=== PATIENT | female | born 1955 | race Caucasian/White ===

== ENCOUNTER 2017-03-24 10:16 | Emergency (ER) | payer OTHER ==
--- NOTE | ~2017-03-24 | EKG ---
PATIENT: CANELO HOLTY UNIT #: [id number] Ventricular Rate: 72 BPM Atrial Rate: 72 BPM P-R Interval: 140 ms QRS Duration: 78 ms Q-T Interval: 400 ms QTC Calculation(Bezet): 438 ms P Stanton: 21 degrees Calculated R Stanton: 46 degrees Calculated T Stanton: 11 degrees Diagnosis Line: Sinus rhythm with marked sinus arrhythmia Diagnosis Line: Otherwise normal ECG Diagnosis Line: No previous ECGs available Diagnosis Line: Confirmed by ROSELINE CASTRO MD ([id number]) on 03/25/2017 Diagnosis Line: 8:01:19 PM INTERPRETING MD: GLORIA CASTILLO
--- NOTE | ~2017-03-24 | CR72 ---
[facility] A Service of [facility] & [facility] RADIOLOGY TEXT RESULTS PATIENT: DONNA HOLT LOCATION: [facility] : 51 UNIT #: [id number] AGE: [address]: Santiago Mansfield MD SEX: F ORDER DR: [id number] [facility] [address] [place], [place] [address] [id number] MR#: [id number] Acc #: [id number] NAME: DONNA HOLT. : 1955 SEX: F STUDY DATE/TIME: 03/24/2017 10:48 UNIT: [facility] ROOM: STUDY DESCRIPTION: CR Chest Single View Portable Attending Physician: Santiago Mansfield M.D. Referring Physician: Jd Oliver II., M.D. Ordering Physician: Santiago Mansfield M.D. Primary Care Physician: Rambo Alves M.D. MEDICAL IMAGING REPORT This report is preliminary unless electronic signature is present EXAM Portable chest x-ray 03/24/2017. HISTORY Short of air. Hypotensive, short of air today. TECHNIQUE AP radiograph of the chest is presented. COMPARISON 07/25/2009. FINDINGS The bony structures are unremarkable. The heart is upper limits of normal in size. Stable appearance. The lungs are well inflated. There is no evidence of acute infectious or inflammatory disease. No pleural effusion or pneumothorax. No suspicious nodule. Dictated by... Jian Zamora M.D. THIS IS AN ELECTRONICALLY VERIFIED REPORT Jian Zamora M.D. at 03/25/2017 11:32 PM Redd TD: 03/24/2017 14:13 JOB #: [id number] MEDICAL IMAGING REPORT Page 1 of 1 COPY
[~2017-03-24 10:16] MED LIST: ASCORBIC ACID500 MG; BACLOFEN10 MG; BACLOFEN10 MG PO; BETASERON IM; DITROPAN; DITROPAN PO; FIBER LAXATIVE; FOSAMAX PO; LAMISIL; LEXAPRO PO; MULTI-VITAMIN1 TAB; NEURONTIN; TEMAZEPAM PO; VIT B-12; VIT B-6; ZANAFLEX; ZANAFLEX PO; [UNRECOGNIZED DRUG - OTHER]
[2017-03-24] MEDS ORDERED: NEURONTIN600 MG PO (10:56)
[2017-03-24] MEDS ORDERED: FLEXERIL PO (10:56)
[2017-03-24] MEDS ORDERED: TIZANIDINE HCL4 M1 PO (10:58)
[2017-03-24] MEDS ORDERED: CELEXA20 MG PO (10:59)
[2017-03-24] MEDS ORDERED: WELCHOL625 M1 PO (10:59)
[2017-03-24] MEDS ORDERED: CALCIUM 600 +1 EAC5 PO (11:02)
[2017-03-24] MEDS ORDERED: REBIF44 MC1 IM (11:03)
[2017-03-24] MEDS ORDERED: LUMIGAN2.5 ML OU (11:05)
[2017-03-24] MEDS ORDERED: ALPHAGAN P5 ML OU (11:05)
[2017-03-24] MEDS ORDERED: ADVIL200 M3 PO (11:08)
[2017-03-24 11:16] LABS: BASOPHIL% 0.5 % (0-2.5); EOSINOPHIL# 0.1 X10e3 (0-0.7); EOSINOPHIL% 2.8 % (0.0-7.0); HEMATOCRIT 30.2 % (35.0-45.0); HEMOGLOBIN 9.8 gm/dL (12.0-16.0); LYMPHOCYTE# 1.6 X10e3 (1.0-3.5); LYMPHOCYTE% 36.5 % (17.0-45.0); MEAN CELL VOLUME 90.5 FL (83-96); MEAN CORPUSCULAR HEMOGLOBIN 29.4 PG (28-34); MEAN CORPUSCULAR HGB CONC 32.5 g/dL (30-36); MEAN PLATELET VOLUME 9.9 FL (6.5-11.5); MONOCYTE# 0.7 X10e3 (0-1.0); MONOCYTE% 15.3 % (3.0-12.0); NEUTROPHIL% 44.9 % (40-75); PLATELET COUNT 134 X10e3 (140-420); RED BLOOD COUNT 3.34 X10e (3.90-5.30); RED CELL DISTRIBUTION WIDTH 13.7 % (11.0-15.5); WHITE BLOOD COUNT 4.4 X10e3 (4.0-10.5)
[2017-03-24 11:21] LABS: DIFF IND NO
[2017-03-24 11:22] LABS: POC - CKMB <1.0 ng/mL (0.0-7.9); POC - TROPONIN <0.05 ng/mL (<=0.05)
[2017-03-24 11:52] LABS: ALBUMIN SERUM 3.9 g/dL (3.5-5.0); ALKALINE PHOSPHATASE 64 U/L (32-92); ALT (SGPT) 17 U/L (10-40); AST (SGOT) 23 U/L (10-42); BILIRUBIN,TOTAL 0.4 mg/dL (0.2-2.0); BLOOD UREA NITROGEN 19 mg/dL (9-23); BUN/CREATININE RATIO 17.27; CALCIUM SERUM 9.3 mg/dL (8.4-10.2); CARBON DIOXIDE 27 mmol/L (22-31); CHLORIDE 102 mmol/L (100-111); CREATININE SERUM 1.1 mg/dL (0.6-1.4); GLUCOSE FASTING 102 mg/dL (70-110); POTASSIUM 3.6 mmol/L (3.5-5.1); PROTEIN TOTAL SERUM 7.1 g/dL (6.0-8.3); SODIUM 137 mmol/L (135-145)
[2017-03-24 11:55] LABS: BILIRUBIN, DIRECT <0.1 mg/dL (0.0-0.2); BILIRUBIN,INDIRECT 0.3 mg/dL (0.0-0.9)
[2017-03-24 12:32] LABS: URINE SOURCE CLEAN CATCH
[2017-03-24 12:41] LABS: URINE APPEARANCE CLEAR; URINE BILIRUBIN NEG (NEG); URINE BLOOD NEG (NEG); URINE COLOR YELLOW; URINE GLUCOSE NEG (NEG); URINE KETONE NEG (NEG); URINE LEUKOCYTE ESTERASE 1+ (NEG); URINE NITRATE NEG (NEG); URINE PH 7.5 (5-8); URINE PROTEIN NEG (NEG); URINE SPECIFIC GRAVITY 1.006 (1.003-1.035); URINE UROBILINOGEN 0.2 MG/DL (NEG)
[2017-03-24 12:43] LABS: CULTURE INDICATED? YES; URBCS1 AUWI 0-2 /[HPF] (0-2); URINE BACTERIA AUWI NEG (NEGATIVE); URINE SQUAMOUS EPITHELIAL CELL NONE SEEN /[HPF]
== END 2017-03-24 14:00 | disposition home or self-care (01) ==
LOC: CED 10:16
PROVIDERS: Emergency Medicine
DX: N39.0 Urinary tract infection, site not specified (principal); I95.9 Hypotension, unspecified
CPT/HCPCS: 36415; 51701; 71010; 80048; 80076; 81003; 82553; 83605; 84484; 85025; 87040; 87086; 93005; 96360; 99284

== ENCOUNTER → 2017-08-02 | Outpatient (CLI) | payer OTHER ==
[~2017-08-02] MED LIST changes: +ADVIL200 M3 PO; +ALPHAGAN P5 ML OU; +CALCIUM 600 +1 EAC5 PO; +CELEXA20 MG PO; +FLEXERIL PO; +LUMIGAN2.5 ML OU; +NEURONTIN600 MG PO; +REBIF44 MC1 IM; +TIZANIDINE HCL4 M1 PO; +WELCHOL625 M1 PO
--- NOTE | ~2017-08-02 | MY29 ---
[facility] A Service of [facility] RADIOLOGY TEXT RESULTS PATIENT: DONNA HOLT LOCATION: [facility] : 51 UNIT #: [id number] AGE: [address]: Rambo Alves MD SEX: F ORDER DR: [id number] [facility] [address] [place], [place] [address] [id number] O MR#: [id number] Acc #: [id number] NAME: DONNA HOLT : 1955 SEX: F STUDY DATE/TIME: 08/02/2017 10:42 UNIT: [facility] ROOM: STUDY DESCRIPTION: MY GABRIELLE SCREENING W/ CAD BILAT Attending Physician: Rambo Alves M.D. Referring Physician: Rambo Alves M.D. Ordering Physician: Rambo Alves M.D. Primary Care Physician: Rambo Alves M.D. MEDICAL IMAGING REPORT This report is preliminary unless electronic signature is present EXAM Digital screening mammogram, 08/02/2017, [facility] HISTORY 62-year-old woman; no risk elevation. Annual screening. COMPARISON Comparison mammograms date to 06/08/2006, with most recent 03/28/2015. FINDINGS Digital imaging of each breast was completed, utilizing screening protocol. Review includes FDA-approved CAD device. Breast parenchyma remains dense with a nodular distribution throughout each breast. Subareolar duct prominence is noted bilaterally. Parenchymal dominance now projects, upper hemisphere, right breast. Posterior margins are well-defined. Parenchymal pattern is heterogeneous. I see no suspicious microcalcifications and no architectural deformity. IMPRESSION Benign mammogram. Annual screening recommended. Patients over the age of 40 are entered into a reminder system with target due date for the next mammogram. A result letter will also be sent to the patient. BIRADS: 2 Benign finding. Dictated by... Hamlet Rangel M.D. THIS IS AN ELECTRONICALLY VERIFIED REPORT [facility] A Service of [facility] & [facility] RADIOLOGY TEXT RESULTS PATIENT: DONNA HOLT LOCATION: [facility] #: [id number] : 51 UNIT #: [id number] AGE: [address]: Rambo Alves MD SEX: F ORDER DR: Hamlet Rangel M.D. at 08/03/2017 8:24 AM Sabi TD: 08/02/2017 17:49 JOB #: [id number] MEDICAL IMAGING REPORT Page 1 of 1 COPY
== END | disposition home or self-care (01) ==
LOC: CWCC 10:24
DX: Z12.31 Encounter for screening mammogram for malignant neoplasm of breast (principal)
CPT/HCPCS: G0202